=== PATIENT | female | born 1970 | race Caucasian/White ===

== ENCOUNTER 2019-07-09 08:47 | Day surgery (SDC) | payer OTHER ==
[2019-07-09 10:20] LABS: Performing Lab VERACYTE; Test Name FNA
[2019-07-31] MEDS ORDERED: AMLODIPINE BESY10 MG PO (13:43)
[2019-07-31] MEDS ORDERED: ATORVASTATIN CA40 MG PO (13:44)
[2019-07-31] MEDS ORDERED: ETOD400 PO (13:44)
[2019-07-31] MEDS ORDERED: Colace100 MG PO (13:44)
[2019-07-31] MEDS ORDERED: DULO30 PO (13:44)
[2019-07-31] MEDS ORDERED: Culturelle1 CAP PO (13:45)
[2019-07-31] MEDS ORDERED: Omega 3 1,0001 EACH PO (13:45)
[2019-07-31] MEDS ORDERED: GLYC2 PO (13:45)
[2019-07-31] MEDS ORDERED: LITH300C PO (13:46)
[2019-07-31] MEDS ORDERED: MAGNESIUM OXID500 MG PO (14:03)
[2019-07-31] MEDS ORDERED: PREG150 PO (14:04)
[2019-07-31] MEDS ORDERED: MELA3 PO (14:04)
[2019-07-31] MEDS ORDERED: QUET300 PO (14:04)
[2019-07-31] MEDS ORDERED: METO50ER PO (14:04)
[2019-07-31] MEDS ORDERED: TIZA4 PO (14:05)
[2019-07-31] MEDS ORDERED: TRAM50 PO (14:05)
[2019-07-31] MEDS ORDERED: Bentyl20 MG PO (14:05)
== END 2019-07-09 22:49 | disposition home or self-care (01) ==
LOC: US 08:47
PROVIDERS: Internal Medicine Hematology & Oncology
DX: E04.1 Nontoxic single thyroid nodule (principal); I10 Essential (primary) hypertension; E78.5 Hyperlipidemia, unspecified; K21.9 Gastro-esophageal reflux disease without esophagitis; F17.210 Nicotine dependence, cigarettes, uncomplicated; G89.29 Other chronic pain; M54.9 Dorsalgia, unspecified; F31.9 Bipolar disorder, unspecified; G43.909 Migraine, unspecified, not intractable, without status migrainosus; G47.33 Obstructive sleep apnea (adult) (pediatric); Z88.5 Allergy status to narcotic agent; Z79.899 Other long term (current) drug therapy
CPT/HCPCS: 10005

== ENCOUNTER 2019-08-06 10:27 | Day surgery (SDC) | payer OTHER ==
[~2019-08-06] VITALS: Ht 185.4 cm; Wt 138.2 kg
[~2019-08-06 10:27] MED LIST: AMLODIPINE BESY10 MG PO; ATORVASTATIN CA40 MG PO; Bentyl20 MG PO; Colace100 MG PO; Culturelle1 CAP PO; DULO30 PO; ETOD400 PO; GLYC2 PO; LITH300C PO; MAGNESIUM OXID500 MG PO; MELA3 PO; METO50ER PO; Omega 3 1,0001 EACH PO; PREG150 PO; QUET300 PO; TIZA4 PO; TRAM50 PO
--- NOTE | 2019-08-06 12:01 | NUR ---
08/06/19 1201 Juhi Cr LATE ENTRY 2MG OF VERSED IV GIVEN PER DR RAMIREZ AT 1138. 5ML OF 4% LIDOCAINE NEBULIZED AT [address] RAMIREZ.
== END 2019-08-06 12:50 | disposition home or self-care (01) ==
LOC: ORSCSDS 10:27
PROVIDERS: Internal Medicine Gastroenterology
PROC: 0DBE8ZX Excision of Large Intestine, Via Natural or Artificial Opening Endoscopic, Diagnostic (ICD-10-PCS; principal; 2019-08-06 11:45)
PROC: 0DB98ZX Excision of Duodenum, Via Natural or Artificial Opening Endoscopic, Diagnostic (ICD-10-PCS; 2019-08-06 11:45)
PROC: 0DB68ZX Excision of Stomach, Via Natural or Artificial Opening Endoscopic, Diagnostic (ICD-10-PCS; 2019-08-06 11:45)
DX: R19.4 Change in bowel habit (principal); K20.9 Esophagitis, unspecified; R10.9 Unspecified abdominal pain; R13.10 Dysphagia, unspecified; K64.8 Other hemorrhoids; K57.30 Diverticulosis of large intestine without perforation or abscess without bleeding; I10 Essential (primary) hypertension; E03.9 Hypothyroidism, unspecified; J44.9 Chronic obstructive pulmonary disease, unspecified; G47.33 Obstructive sleep apnea (adult) (pediatric); F43.10 Post-traumatic stress disorder, unspecified; F60.3 Borderline personality disorder; K76.0 Fatty (change of) liver, not elsewhere classified; E04.1 Nontoxic single thyroid nodule; E66.9 Obesity, unspecified; Z68.41 Body mass index [BMI] 40.0-44.9, adult; Z79.899 Other long term (current) drug therapy; F17.210 Nicotine dependence, cigarettes, uncomplicated
CPT/HCPCS: 88305; 88341; 88342; J2001; J2250; J2405; J2704; J7120

== ENCOUNTER 2021-12-16 19:43 | Emergency (ER) | payer OTHER ==
[~2021-12-16] VITALS: Ht 185.4 cm; Wt 136.1 kg
[~2021-12-16 19:43] MED LIST changes: +CELE200 PO; +DOXY100 PO; +GLIP5ER PO; +LOPE2C PO; +LORA10ER PO; +Lithium Carbon450 MG PO; +ONDA4ODT SL; +Percocet 10-321 EACH PO
== END 2021-12-16 21:39 | disposition home or self-care (01) ==
LOC: ER 19:43
DX: S80.02XA Contusion of left knee, initial encounter (principal); S80.01XA Contusion of right knee, initial encounter; W18.09XA Striking against other object with subsequent fall, initial encounter; W10.9XXA Fall (on) (from) unspecified stairs and steps, initial encounter; I10 Essential (primary) hypertension; F17.200 Nicotine dependence, unspecified, uncomplicated; Z79.899 Other long term (current) drug therapy; Z96.652 Presence of left artificial knee joint
CPT/HCPCS: 73562-LT; 73562-RT; A9270; J1885